=== PATIENT | male | born 1995 | race Caucasian/White ===

== ENCOUNTER 2020-10-26 00:41 | Emergency (ER) | payer BC ==
[2020-10-26 01:15] LABS: HEMOGLOBIN 17.6 gm/dl (14.0-17.5); RED BLOOD COUNT 5.43 M/UL (4.20-5.50); WHITE BLOOD COUNT 13.8 K/UL (4.5-11.0)
[2020-10-26 01:28] LABS: BUN/CREATININE RATIO 14 (0-10)
== END 2020-10-26 02:45 | disposition home or self-care (01) ==
LOC: ER1 00:41
PROVIDERS: Family Medicine
DX: B34.9 Viral infection, unspecified (principal); Z20.822 Contact with and (suspected) exposure to COVID-19
CPT/HCPCS: 36415; 71045; 80053; 85025; 87081; 87880; 99283; U0002